=== PATIENT | male | born 1990 | race Caucasian/White ===

== ENCOUNTER 2018-09-01 02:55 | Emergency (ER) | payer OTHER ==
[~2018-09-01] VITALS: Ht 165.1 cm; Wt 81.6 kg
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
--- NOTE | 2018-09-01 03:25 | NUR ---
PT UNDERGOING CT
[2018-09-01] MEDS ORDERED: LIDOCAINE 1%-EPI 1:100,000 20 ML VIAL ONE ×2 (04:18→04:20)
[2018-09-01] MEDS ORDERED: oxyCODONE/APAP (5/325 MG) 1 UDTAB TABLET ONE (04:18)
[2018-09-01] MEDS ORDERED: TDAP [DIPH/PERTUSSIS/TET] 0.5 ML VIAL IM ONE ×2 (04:19→04:30)
--- NOTE | 2018-09-01 04:24 | NUR ---
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
[2018-09-01] MEDS ORDERED: ONDANSETRON 4 MG TAB.RAPDIS ONE (04:26)
[2018-09-01] MEDS: ONDANSETRON 4 MG TAB.RAPDIS SL ONE ×2 (04:29→05:38)
--- NOTE | 2018-09-01 04:29 | NUR ---
ADMINISTERED 4MG ZOFRAN PO PER ORDERED BY .
[2018-09-01] MEDS ORDERED: LIDOCAINE 1%-EPI 1:100,000 50 ML VIAL IJ ONE (04:30)
[2018-09-01] MEDS ORDERED: oxyCODONE/APAP (5/325 MG) 1 UDTAB TABLET PO ONE (04:30)
--- NOTE | 2018-09-01 04:48 | NUR ---
XRAY AT BEDSIDE
--- NOTE | 2018-09-01 05:42 | NUR ---
Patient discharged to home in stable condition. Written and verbal after care instructions given. Patient verbalizes understanding of instruction. AMBULATED WITH STEADY GAIT. INSTRUCTED NOT TO OPERATE OR DRIVE HEAVY MACHINERY. VSS.
[2018-09-01 05:48] VITALS: BP 132/80
== END 2018-09-01 05:58 | disposition home or self-care (01) ==
LOC: ER 02:59
DX: S62.511A Displaced fracture of proximal phalanx of right thumb, initial encounter for closed fracture (principal); S01.01XA Laceration without foreign body of scalp, initial encounter; S51.812A Laceration without foreign body of left forearm, initial encounter; S81.812A Laceration without foreign body, left lower leg, initial encounter; Y08.89XA Assault by other specified means, initial encounter; Y93.89 Activity, other specified; Y92.89 Other specified places as the place of occurrence of the external cause; Y99.8 Other external cause status
CPT/HCPCS: 12007; 29125; 70450; 70486; 71045; 72125; 73090; 73130; 73590; 90471; 90715; 99284; J3490 ×2; Q0162; A4606; A6402; Z7610